=== PATIENT | female | born 1945 | race Caucasian/White ===

== ENCOUNTER 2025-05-28 20:56 | Inpatient (IN) | payer MEDICARE ==
[~2025-05-28] VITALS: Ht 147.3 cm; Wt 55.0 kg
[2025-05-28 21:02] VITALS: O2SAT 95
[2025-05-28] MEDS: ASPIRIN 325MG TABLET PO ONE (21:15)
[2025-05-28] MEDS: FENTANYL CITRATE/PF 50MCG/ML 2ML VIAL IV ONE (21:15)
[2025-05-28 22:00] LABS: BASOPHILS % 0.9 % (0.0-2.0); EOSINOPHILS % 2.5 % (0.0-5.0); HEMATOCRIT. 36.8 % (36.0-48.0); HEMOGLOBIN. 12.1 g/dL (12.0-16.0); LYMPHOCYTES % 19.6 % (20.0-50.0); MEAN PLATELET VOLUME 7.0 fl (7.4-10.4); MONOCYTES % 6.9 % (2.0-8.0); NEUTROPHILS % 70.1 % (40.0-76.0); PLATELET 225 x1000/uL (130-400); RED BLOOD CELL COUNT 3.93 mill/uL (4.2-5.4); RED CELL DISTRIBUTION WIDTH 14.1 % (11.6-14.6)
[2025-05-28 22:16] LABS: CREATININE 0.7 mg/dL (0.6-1.0); UREA NITROGEN BLOOD 16 mg/dL (9-23)
[2025-05-28 22:28] LABS: TROPONIN I HIGH SENSITIVITY 154 ng/L (3.0-34)
[2025-05-28] MEDS: SODIUM CHLORIDE 0.9% 1,000 ML IV ONE (23:09)
[2025-05-29] VITALS (11 sets, daily range): BP systolic 91–126; BP diastolic 56–91; PULSE 64–89; RESP 16–24; TEMP 36.2–36.6; O2SAT 94–98
[2025-05-29] MEDS: HEPARIN 5000 UNITS/ML VIAL IV ONE
[2025-05-29] MEDS: ASPIRIN 325MG TABLET PO NR (00:02)
[2025-05-29] MEDS: FENTANYL CITRATE/PF 50MCG/ML 2ML VIAL IV NR (00:03)
[2025-05-29 00:06] LABS: TROPONIN I HIGH SENSITIVITY 720 ng/L (3.0-34)
[2025-05-29] MEDS ORDERED: HEPARIN 25,000 UNITS PREMIX 250 ML IV SCH (00:15)
[2025-05-29] MEDS ORDERED: HEPARIN BOLUS PRN aPTT <36 IV (01:30)
[2025-05-29] MEDS ORDERED: HEPARIN BOLUS PRN aPTT 37-44 IV (01:30)
[2025-05-29] MEDS: HEPARIN 5000 UNITS/ML VIAL IV NR (02:10)
[2025-05-29] MEDS: HEPARIN 25,000 UNITS PREMIX 250 ML IV SCH (02:16)
[2025-05-29] MEDS ORDERED: IOHEXOL-350 100 ML BOTTLE ONE (05:25)
[2025-05-29 05:57] LABS: BASOPHILS % 0.6 % (0.0-2.0); EOSINOPHILS % 0.2 % (0.0-5.0); HEMATOCRIT. 36.4 % (36.0-48.0); HEMOGLOBIN. 12.0 g/dL (12.0-16.0); LYMPHOCYTES % 13.7 % (20.0-50.0); MEAN PLATELET VOLUME 7.0 fl (7.4-10.4); MONOCYTES % 5.1 % (2.0-8.0); NEUTROPHILS % 80.4 % (40.0-76.0); PLATELET 230 x1000/uL (130-400); RED BLOOD CELL COUNT 3.93 mill/uL (4.2-5.4); RED CELL DISTRIBUTION WIDTH 13.9 % (11.6-14.6)
[2025-05-29 06:27] LABS: CREATININE 0.5 mg/dL (0.6-1.0); UREA NITROGEN BLOOD 10 mg/dL (9-23)
[2025-05-29 06:29] LABS: ASPARTATE AMINOTRANSFERASE 37 IU/L (<34); BILIRUBIN TOTAL 0.6 mg/dL (0.1-1.0); PROTEIN TOTAL 5.9 g/dL (6.0-8.3)
[2025-05-29] MEDS: PANTOPRAZOLE 40MG DR TABLET PO SCH (10:48)
[2025-05-29] MEDS: LEVOTHYROXINE SODIUM 88MCG TABLET PO SCH (10:48)
[2025-05-29] MEDS ORDERED: HEPARIN 25,000 UNITS PREMIX 250 ML IV PRN (12:30)
[2025-05-29] MEDS ORDERED: HEPARIN 5000 UNITS/ML VIAL IV PRN ×2 (12:30)
[2025-05-29] MEDS ORDERED: HEPARIN 5000 UNITS/ML VIAL IV SCH (12:30)
[2025-05-29] MEDS: ASPIRIN 81MG TABLET PO SCH (14:01)
[2025-05-29] MEDS: HYDROCODONE/ACETAMINOPHEN 5/325MG TABLET PO SCH (16:20)
[2025-05-29] MEDS: ATORVASTATIN CALCIUM 40MG TABLET PO SCH (20:52)
[2025-05-30] VITALS (12 sets, daily range): BP systolic 109–150; BP diastolic 56–88; PULSE 53–72; RESP 14–26; TEMP 36.3–37.2; O2SAT 93–99
[2025-05-30] MEDS: ASPIRIN 81MG TABLET PO SCH (08:51)
[2025-05-30 18:59] LABS: BASOPHILS % 0.8 % (0.0-2.0); EOSINOPHILS % 3.9 % (0.0-5.0); HEMATOCRIT. 37.1 % (36.0-48.0); HEMOGLOBIN. 12.4 g/dL (12.0-16.0); LYMPHOCYTES % 19.8 % (20.0-50.0); MEAN PLATELET VOLUME 7.5 fl (7.4-10.4); MONOCYTES % 8.3 % (2.0-8.0); NEUTROPHILS % 67.2 % (40.0-76.0); PLATELET 224 x1000/uL (130-400); RED BLOOD CELL COUNT 4.03 mill/uL (4.2-5.4); RED CELL DISTRIBUTION WIDTH 13.8 % (11.6-14.6)
[2025-05-30 19:17] LABS: CREATININE 0.7 mg/dL (0.6-1.0); UREA NITROGEN BLOOD 7 mg/dL (9-23)
[2025-05-31] VITALS (11 sets, daily range): BP systolic 109–162; BP diastolic 61–94; PULSE 62–73; RESP 13–26; TEMP 36.7–37.2; O2SAT 92–99
[2025-05-31 07:31] LABS: BASOPHILS % 0.8 % (0.0-2.0); EOSINOPHILS % 1.7 % (0.0-5.0); HEMATOCRIT. 35.9 % (36.0-48.0); HEMOGLOBIN. 12.0 g/dL (12.0-16.0); LYMPHOCYTES % 18.3 % (20.0-50.0); MEAN PLATELET VOLUME 7.7 fl (7.4-10.4); MONOCYTES % 7.7 % (2.0-8.0); NEUTROPHILS % 71.5 % (40.0-76.0); PLATELET 237 x1000/uL (130-400); RED BLOOD CELL COUNT 3.92 mill/uL (4.2-5.4); RED CELL DISTRIBUTION WIDTH 14.1 % (11.6-14.6)
[2025-05-31 07:55] LABS: CREATININE 0.6 mg/dL (0.6-1.0); UREA NITROGEN BLOOD 7 mg/dL (9-23)
[2025-05-31] MEDS ORDERED: LIDOCAINE HCL 1% 20ML VIAL ONE (13:05)
[2025-05-31] MEDS ORDERED: HEPARIN 1000 UNITS/ML 10ML ONE (13:05)
[2025-05-31] MEDS ORDERED: IODIXANOL 320 MG/ML 150ML BOTTLE IV ONE (13:06)
[2025-05-31] MEDS ORDERED: FENTANYL CITRATE/PF 50MCG/ML 2ML VIAL ONE (14:01)
[2025-05-31] MEDS ORDERED: MIDAZOLAM HCL 2 MG/2 ML VIAL ONE (14:01)
[2025-05-31] MEDS ORDERED: ATROPINE SULFATE 1MG/10ML SYR IV PRN (15:15)
[2025-05-31] MEDS: ACETAMINOPHEN 325MG TABLET PO PRN (19:02)
[2025-06-01] VITALS (12 sets, daily range): BP systolic 99–145; BP diastolic 62–102; PULSE 69–84; RESP 16–21; TEMP 36.7–37.4; O2SAT 92–99
[2025-06-01] MEDS: HYDROCODONE/ACETAMINOPHEN 5/325MG TABLET PO PRN (06:36)
[2025-06-01] MEDS ORDERED: APIX5TAB MT (10:55)
[2025-06-01] MEDS: APIXABAN 5 MG TABLET PO SCH (11:06)
[2025-06-01 13:10] LABS: BASOPHILS % 0.6 % (0.0-2.0); EOSINOPHILS % 1.6 % (0.0-5.0); HEMATOCRIT. 37.8 % (36.0-48.0); HEMOGLOBIN. 12.6 g/dL (12.0-16.0); LYMPHOCYTES % 14.6 % (20.0-50.0); MEAN PLATELET VOLUME 7.6 fl (7.4-10.4); MONOCYTES % 5.9 % (2.0-8.0); NEUTROPHILS % 77.3 % (40.0-76.0); PLATELET 249 x1000/uL (130-400); RED BLOOD CELL COUNT 4.14 mill/uL (4.2-5.4); RED CELL DISTRIBUTION WIDTH 13.4 % (11.6-14.6)
[2025-06-02] VITALS: BP 118/77; PULSE 74; RESP 18; TEMP 36.9; O2SAT 100
[2025-06-02 02:00] VITALS: PULSE 69; RESP 17; O2SAT 94
[2025-06-02 04:00] VITALS: BP 144/80; PULSE 68; RESP 19; TEMP 37.1; O2SAT 95
[2025-06-02 06:00] VITALS: BP 112/60; PULSE 65; RESP 17
[2025-06-02 08:00] VITALS: BP 140/88; PULSE 93; RESP 20; O2SAT 96
[2025-06-02 09:28] VITALS: BP 140/88; PULSE 93; RESP 20; TEMP 98
== END 2025-06-02 09:50 | disposition home or self-care (01) | DRG 163 ==
LOC: ER 21:25 → EDBEDREQTM 23:44 → EDBEDREQ 23:44 → 5EST 05-29 00:04 → EDBEDREQ 05-29 00:06 → EDBEDREQSVC 05-29 00:06 → ENRESERV 05-29 03:08
PROVIDERS: ADMIT Internal Medicine; ATTEND Internal Medicine
PROC: 02CQ3ZZ Extirpation of Matter from Right Pulmonary Artery, Percutaneous Approach (ICD-10-PCS; principal; 2025-05-31)
PROC: 02CR3ZZ Extirpation of Matter from Left Pulmonary Artery, Percutaneous Approach (ICD-10-PCS; 2025-05-31)
PROC: 4A023N6 Measurement of Cardiac Sampling and Pressure, Right Heart, Percutaneous Approach (ICD-10-PCS; 2025-05-31)
PROC: B31SYZZ Fluoroscopy of Right Pulmonary Artery using Other Contrast (ICD-10-PCS; 2025-05-31)
PROC: B519YZZ Fluoroscopy of Inferior Vena Cava using Other Contrast (ICD-10-PCS; 2025-05-31)
PROC: B214YZZ Fluoroscopy of Right Heart using Other Contrast (ICD-10-PCS; 2025-05-31)
PROC: B31TYZZ Fluoroscopy of Left Pulmonary Artery using Other Contrast (ICD-10-PCS; 2025-05-31)
DX: I26.02 Saddle embolus of pulmonary artery with acute cor pulmonale (principal); I21.4 Non-ST elevation (NSTEMI) myocardial infarction; J96.01 Acute respiratory failure with hypoxia; R57.9 Shock, unspecified; E03.9 Hypothyroidism, unspecified; D15.1 Benign neoplasm of heart; M81.0 Age-related osteoporosis without current pathological fracture; Z96.653 Presence of artificial knee joint, bilateral; Z79.01 Long term (current) use of anticoagulants
CPT/HCPCS: 36415; 37184; 37185; 71045; 71275; 75743; 75820; 75825; 80048; 80053; 83880; 84443; 84484; 85025; 85347; 86850; 86900; 93005; 93306; 93970; 96361; 96374; 99291; 99292; A4606; C1769; C1887; C1893; J1644; J2003; J2250; J3010; J7030; Q9967; C1894